=== PATIENT | male | born 1965 | race Caucasian/White ===

== ENCOUNTER 2017-11-29 03:01 | Emergency (ER) | payer SELFPAY ==
[2017-11-29] MEDS ORDERED: Dicyclomine 10 MG CAP ONE (03:27)
[2017-11-29 04:10] LABS: Bilirubin Moderate (Negative); Blood, Urine Large (Negative); Clarity Cloudy (Clear); Glucose, Urine (Dipstick) Negative (Negative); Leukocyte Negative (Negative); Nitrite Negative (Negative); Protein, Urine (Dipstick) 100 mg/dL (Neg-Trace)
[2017-11-29] MEDS ORDERED: Ketorolac Tromethamine 30 MG/ML VIAL ONE (04:10)
[2017-11-29] MEDS ORDERED: Tamsulosin HCl 0.4 MG CAP ONE (04:10)
[2017-11-29 04:22] LABS: RBC/HPF GREATER THAN 50-TNTC HPF (0-3); Specific Gravity, Urine 1.032 (1.002-1.036)
[2017-11-29 04:23] LABS: Bacteria/HPF 1+ HPF (None Seen); Transitional Epithelial 0-3 HPF (0-3)
--- NOTE | 2017-11-29 08:04 | CT ---
PRELIMINARY REPORT/[facility]/EMERGENCY AFTER HOURS PROCEDURE: EXAM: CT Abdomen and Pelvis Without Intravenous Contrast EXAM DATE/TIME: Exam ordered 11/29/2017 3:30 AM CLINICAL HISTORY: 52 years old, male; Pain; Abdominal pain; Localized; Lower TECHNIQUE: Axial computed tomography images of the abdomen and pelvis without intravenous contrast. Coronal reformatted images were created and reviewed. COMPARISON: No relevant prior studies available. FINDINGS: Lower thorax: No acute findings. ABDOMEN: Liver: Geographic subcapsular hepatic steatosis. Gallbladder and bile ducts: Unremarkable. No calcified stones. No ductal dilation. Pancreas: Unremarkable. No ductal dilation. Spleen: Unremarkable. No splenomegaly. Adrenals: Unremarkable. No mass. Kidneys and ureters: 4 mm obstructing stone in the proximal right ureter causing mild obstructive uropathy. Stomach and bowel: Incidental visible submucosal fat in the underdistended portions of the colon. This is not wall thickening or colitis. Appendix: Normal appendix. PELVIS: Bladder: Unremarkable. No stones. Reproductive: Unremarkable as visualized. ABDOMEN and PELVIS: Intraperitoneal space: Unremarkable. No free air. No significant fluid collection. Bones/joints: No acute fracture. No dislocation. Soft tissues: Bilateral fat containing inguinal hernias. Vasculature: Unremarkable. No abdominal aortic aneurysm. Lymph nodes: Unremarkable. No enlarged lymph nodes. IMPRESSION: 4 mm obstructing stone in the proximal right ureter causing mild obstructive uropathy. Thank you for allowing us to participate in the care of your patient. Dictated and Authenticated by: Robbie Robles MD 11/29/2017 3:47 AM Central Time ([place] & [place]) FINAL REPORT CT ABDOMEN AND PELVIS WITHOUT CONTRAST: I agree with the preliminary report given by Dr. Robbie Robles of [facility]. POS: [facility]
== END 2017-11-29 04:45 | disposition home or self-care (01) ==
LOC: MADERS 03:01
DX: N20.2 Calculus of kidney with calculus of ureter (principal)
CPT/HCPCS: 74176; 81003; 81015; 96374; J1885